=== PATIENT | male | born 1955 | race Caucasian/White ===

== ENCOUNTER → 2017-05-12 | Outpatient (CLI) | payer OTHER ==
[~2017-05-12] MED LIST: FLAGYL250 M1 PO; LEVAQUIN250 MG PO; NO MEDICATIONS; NORCO 10/3251 TAB PO
--- NOTE | ~2017-05-12 | CR63 ---
[facility] A Service of [facility] RADIOLOGY TEXT RESULTS PATIENT: WALDO RODRIGUEZ LOCATION: [facility] : 59 UNIT #: [id number] AGE: [address]: Cj Garcia MD SEX: M ORDER DR: [id number] [place] [id number] O MR#: [id number] Acc #: [id number] NAME: WALDO RODRIGUEZ : 1955 SEX: M STUDY DATE/TIME: 05/12/2017 11:46 UNIT: SRAD ROOM: STUDY DESCRIPTION: CR Chest 2 View Attending Physician: Cj Garcia M.D. Referring Physician: Cj Garcia M.D. Ordering Physician: Cj Garcia M.D. Primary Care Physician: Cj Garcia M.D. MEDICAL IMAGING REPORT This report is preliminary unless electronic signature is present. EXAM Two view chest, 05/12/2017, [facility] HISTORY A 62-year-old male patient, unexplained left breast pain past 1-2 weeks. Fifteen year smoking history. COMPARISON STUDIES Comparison chest 03/23/2014. FINDINGS PA and lateral chest views show normal cardiac size and configuration. Hilar structures and mediastinal contours are preserved. Lungs are hyperinflated bilaterally. There are no infiltrates. I see no lung mass or nodule and no effusion. IMPRESSION Stable chest. Findings consistent with COPD. No acute finding at this time. Dictated by... Jeison Castilol M.D. THIS IS AN ELECTRONICALLY VERIFIED REPORT Jeison Castillo M.D. at 05/13/2017 8:13 AM PIYUSH/jorge TD: 05/12/2017 21:56 JOB #: [id number] [facility] A Service [facility] RADIOLOGY TEXT RESULTS PATIENT: WALDO RODRIGUEZ LOCATION: [facility] : 59 UNIT #: [id number] AGE: [address]: Cj Garcia MD SEX: M ORDER DR: MEDICAL IMAGING REPORT Page 1 of 1
== END | disposition home or self-care (01) ==
LOC: SRAD 11:34
DX: N64.4 Mastodynia (principal)
CPT/HCPCS: 71020